=== PATIENT | female | born 1935 | race Caucasian/White ===

== ENCOUNTER 2021-07-06 11:31 | Emergency (ER) | payer OTHER ==
[2021-07-06 11:48] VITALS: BP 138/65; PULSE 74; TEMP 99.5; BMI 30.2
[2021-07-06 13:14] LABS: ALBUMIN 3.3 g/dl (3.4-5.0); BILIRUBIN,TOTAL 3.1 mg/dl (0.2-1); CALCIUM 8.9 mg/dl (8.5-10); CREATININE 0.9 mg/dl (0.55-1.3); TOT PROT 6.2 g/dl (6.4-8.2)
[2021-07-06 13:35] LABS: EPITHELIAL CELLS FEW /hpf
[2021-07-06 14:31] LABS: BASO % 0.8 % (0-2.0); EOS % 1.2 % (0-4.5); HEMATOCRIT 36.7 % (32.4-45.2); HEMOGLOBIN 12.3 GM/dL (10.7-15.3); LYMPH % 16.7 % (8-40); MCH 28.7 pg (25.7-33.7); MCHC 33.5 g/dl (32.0-36.0); MEAN CELL VOLUME 85.6 fl (80-96); MEAN PLT VOLUME 11.3 fl (7.5-11.1); MONO % 12.1 % (3.8-10.2); NEUT % 69.2 % (42.8-82.8); PLATELET COUNT 183 10^3/uL (134-434); RBC 4.28 M/mm3 (3.60-5.2); RDW 13.6 % (11.6-15.6)
== END 2021-07-06 15:14 | disposition home or self-care (01) ==
LOC: FER 11:31
DX: K80.50 Calculus of bile duct without cholangitis or cholecystitis without obstruction (principal)
CPT/HCPCS: 36415; 76705-TC; 80053; 81003; 81015; 85025; 87086; 99284-25

== ENCOUNTER 2021-07-07 15:01 | Inpatient (IN) | payer OTHER ==
[2021-07-07] MEDS ORDERED: LACTATED RINGERS SOLUTION 1000 ML INFUS.BAG IV ONE (17:49)
[2021-07-07 18:11] LABS: BASO % 1.7 % (0-2.0); EOS % 2.8 % (0-4.5); HEMATOCRIT 37.9 % (32.4-45.2); HEMOGLOBIN 12.6 GM/dL (10.7-15.3); LYMPH % 31.3 % (8-40); MCH 28.4 pg (25.7-33.7); MCHC 33.2 g/dl (32.0-36.0); MEAN CELL VOLUME 85.5 fl (80-96); MEAN PLT VOLUME 11.3 fl (7.5-11.1); MONO % 12.5 % (3.8-10.2); NEUT % 51.7 % (42.8-82.8); PLATELET COUNT 184 10^3/uL (134-434); RBC 4.43 M/mm3 (3.60-5.2); RDW 13.7 % (11.6-15.6); WHITE BLOOD COUNT 6.3 K/mm3 (4.0-10.0)
[2021-07-07 18:27] LABS: CHLORIDE 108 mmol/L (98-107); SODIUM 141 mmol/L (136-145)
[2021-07-07 18:29] LABS: CALCIUM 8.9 mg/dL (8.5-10.1)
[2021-07-07 18:30] LABS: ALBUMIN 3.2 g/dl (3.4-5.0); ANION GAP 9 MMOL/L (8-16); CO2 24 mmol/L (21-32); GLUCOSE,RANDOM 87 mg/dL (74-106); LIPASE 129 U/L (73-393)
[2021-07-07 18:33] LABS: CREATININE 0.9 mg/dL (0.55-1.3); SGOT/AST 199 U/L (15-37); SGPT/ALT 341 U/L (13-61)
[2021-07-07 18:34] LABS: TOT PROT 6.7 g/dl (6.4-8.2)
[2021-07-07 18:36] LABS: ALK PHOS 402 U/L (45-117)
[2021-07-07] MEDS ORDERED: morphine SULFATE 4 MG/ML VIAL IVPUSH ONE (20:31)
[2021-07-07 21:16] LABS: INR 1.13 (0.83-1.09); PROTHROMBIN TIME (PATIENT) 12.7 SEC (9.7-13.0)
[2021-07-07 21:18] LABS: ACTIVATED PTT 28.1 SECONDS (25.2-36.5)
[2021-07-08] MEDS ORDERED: morphine SULFATE 4 MG/ML VIAL IVPUSH PRN (00:34)
[2021-07-08] MEDS: SODIUM CHLORIDE 1,000 ML IV SCH ×2 (02:27→12:52)
[2021-07-08 05:17] VITALS: BMI 29.2
[2021-07-08 08:06] LABS: CALCIUM 8.8 mg/dL (8.5-10.1)
[2021-07-08 08:07] LABS: ALBUMIN 2.7 g/dl (3.4-5.0); BLOOD UREA NITROGEN 7.2 mg/dL (7-18); MAGNESIUM 2.1 mg/dL (1.8-2.4)
[2021-07-08 08:10] LABS: CREATININE 0.8 mg/dL (0.55-1.3); PHOSPHOROUS 3.3 mg/dL (2.5-4.9)
[2021-07-08] MEDS ORDERED: MIDAZOLAM HCL 2 MG/2 ML SINGLE DOSE VIAL ONE (09:58)
[2021-07-08] MEDS ORDERED: ASPIRIN COATED 81 MG TABLET.EC PO SCH (10:00)
[2021-07-08] MEDS ORDERED: LISINOPRIL 5 MG TABLET PO SCH (10:00)
[2021-07-08] MEDS ORDERED: PANTOPRAZOLE 40 MG TABLET PO SCH (10:00)
[2021-07-08] MEDS ORDERED: amLODIPine BESYLATE 5 MG TABLET (FP) PO SCH (10:00)
[2021-07-08] MEDS ORDERED: CALCIUM 500MG/VIT-D 200 UNITS COMBO TABLET (FP) PO SCH (10:00)
[2021-07-08] MEDS ORDERED: PANTOPRAZOLE 20 MG TABLET PO SCH ×2 (10:11→10:15)
[2021-07-08] MEDS ORDERED: IOHEXOL 300 MG/ML INFUS..BTL IV ONE (10:55)
[2021-07-08] MEDS ORDERED: DEXTROSE 5%-0.45% SALINE 1,000 ML IV SCH (13:30)
[2021-07-08] MEDS: PIPERACILLIN/TAZOB 3.375 GM 3.375 GM in DEXTROSE 5%-WATER - 50 ML IVPB SCH ×2 (14:10→17:13)
[2021-07-08] MEDS ORDERED: DEXTROSE 5%-WATER - 50 ML IVPB ONE ×2 (14:12→16:38)
[2021-07-08] MEDS ORDERED: PIPERACILLIN/TAZOBACTAM 3.375 GM VIAL IVPB ONE ×2 (14:12→16:38)
[2021-07-08 21:19] VITALS: BP 138/79; PULSE 96; TEMP 101.3
[2021-07-09] MEDS ORDERED: PIPERACILLIN/TAZOB 3.375 GM 3.375 GM in DEXTROSE 5%-WATER - 50 ML IVPB SCH (02:00)
== END 2021-07-08 22:26 | disposition short-term general hospital (02) | DRG 446 ==
LOC: JER 15:01 → J8W 22:04
PROVIDERS: ATTEND Internal Medicine
PROC: 0F798DZ Dilation of Common Bile Duct with Intraluminal Device, Via Natural or Artificial Opening Endoscopic (ICD-10-PCS; 2021-07-08)
PROC: BF10YZZ Fluoroscopy of Bile Ducts using Other Contrast (ICD-10-PCS; 2021-07-08)
PROC: 0FC98ZZ Extirpation of Matter from Common Bile Duct, Via Natural or Artificial Opening Endoscopic (ICD-10-PCS; principal; 2021-07-08 10:00)
DX: K80.51 Calculus of bile duct without cholangitis or cholecystitis with obstruction (principal); K21.9 Gastro-esophageal reflux disease without esophagitis; K83.8 Other specified diseases of biliary tract; E78.00 Pure hypercholesterolemia, unspecified; I10 Essential (primary) hypertension; I44.0 Atrioventricular block, first degree; R94.5 Abnormal results of liver function studies; D64.9 Anemia, unspecified; N20.0 Calculus of kidney; Z86.718 Personal history of other venous thrombosis and embolism
CPT/HCPCS: 36415; 71045-TC-FY; 74177-TC; 76000-TC-FY; 80053; 82550; 83605; 83690; 83735; 84100; 84484; 85025; 85610; 85730; 86850; 86900; 86901; 93005; 93010; 99285-25; C9803; U0003; U0005